=== PATIENT | male | born 1945 | race Caucasian/White ===

== ENCOUNTER 2022-09-14 08:17 | Outpatient (CLI) | payer MEDICARE, SELFPAY ==
--- NOTE | 2022-10-03 14:50 | WPDSLEEPSTUD ---
Sleep Study Date of Study: 09/14/22 Ordering Provider: Debby Lawton Interpreting Physician: Nallely Meraz DO Sleep Study Type: CPAP Titration Height: 1.75 m Weight: 97.976 kg Body Mass Index: 31.8 Neck Circumference (inches): 15.5 [place]: 7 Reason for Sleep Study Sleep study in 03/2021 showed AHI of 36.6. Prescribed autoPAP 5-20 cm H2O with EPR of 2. Recent compliance data shows residual AHI of 23 with 36% of time in Kevni Ojeda respirations Sleep History The patient is a 77-year-old male with severe sleep apnea that had a sleep study ordered by his ENT office for abnormalities on his compliance report. The patient is currently retired. He rarely awakens from sleep short of breath. He denies awakening at night with heartburn, belching or cough. He rarely snores loudly enough that others complain. He occasionally has trouble sleeping when he has a cold. He denies waking up gasping for air throughout the night. He rarely has breathing problems at night observed by himself or others. He occasionally sweats excessively at night. He occasionally has heart palpitations or irregular heartbeats during the night. He rarely falls asleep during the day and denies falling asleep while driving. He rarely experiences loss of muscle tone when extremely emotional. He denies having trouble at school or work due to sleepiness. He denies sleep paralysis and hypnagogic / hypnopompic hallucinations. He denies feeling afraid of going to sleep. He denies having nightmares. He rarely remembers his dreams. He occasionally has thoughts racing through his mind. He denies feeling sad, depressed and anxious. He rarely has muscular tension. He occasionally notices parts of his body jerk. He denies kicking during the night. He rarely has crawling and aching feelings in his legs and rarely has leg pain during the night. He denies grinding his teeth during sleep and denies awakening with morning jaw pain. He denies being bothered by pain during the day and denies being awakened by pain during the night. He denies waking up feeling stiff in the morning. He denies waking up with sore or achy muscles. He denies waking up with pain in the neck, spine or other joints. He goes to bed at 9:00 p.m. on both weekdays and weekends. It takes him 1 hour to fall asleep. He wakes up 4 times throughout the night to urinate and is able to fall back asleep within a couple minutes. He wakes up at 4:00 a.m. on both weekdays and weekends. He typically gets 6 hours of sleep per night. He will stay in bed for 1 hour after waking up in the morning. He currently lives with his . He does not consume any caffeinated beverages within 2 hours of bedtime. He does not engage in physical exercise before bedtime. He will watch television before falling asleep. He will take naps in the afternoon or the evening and they are refreshing. He drinks 2 cups of caffeinated beverage per day. He quit smoking cigarettes 15 years ago. He denies alcohol and recreational drug use. [facility] Past Medical History Medical History (Updated 10/03/22 @ 16:01 by Nallely Meraz DO) Benign prostatic hyperplasia GERD (gastroesophageal reflux disease) Hypertension Idiopathic pulmonary fibrosis AGNIESZKA (obstructive sleep apnea) Sleep Procedure This test was performed using the [employer] multiple channel system including EOG, EEG, submental EMG, EKG, nasal and oral airflow using thermistors and nasal pressure sensors, chest and abdominal belts for body position data, and pulse oximetry. Video monitoring was also performed. The study was scored using [facility] guidelines. Sleep Architecture The patient had a total recording time of 496.2 minutes and total sleep time of 149.5 minutes. The sleep efficiency was 30.1%. Sleep latency was 81.9 minutes and REM latency was 143 minutes. The patient had 78 awakenings. The patient spent 48.5 minutes, 32.4% of total sleep time in stage N1. Th
[2022-10-03 15:10] VITALS: BMI 31.8
--- NOTE | 2022-12-28 09:41 | SLEEP ---
pt is f/u with dental device
--- NOTE | 2023-01-05 11:17 | SLEEP ---
SPOKE WITH PATIENT HE EXPRESSED CONCERN ABOUT RETURNING WITH SLEEP AID AND FREQUENT URINATION. I EXPLAINED TO PT TECH WOULD BE AVAILABLE THROUGHOUT NIGHT PT AGREED TO TESTING IN ROOM 3.
== END 2022-09-15 06:34 | disposition home or self-care (01) ==
LOC: ANHCSM 08:28
DX: G47.33 Obstructive sleep apnea (adult) (pediatric) (principal); K21.9 Gastro-esophageal reflux disease without esophagitis; I10 Essential (primary) hypertension; R94.31 Abnormal electrocardiogram [ECG] [EKG]
CPT/HCPCS: 95811

== ENCOUNTER 2023-01-11 08:26 | Outpatient (CLI) | payer MEDICARE, SELFPAY ==
--- NOTE | 2023-01-29 20:50 | WPDSLEEPSTUD ---
Sleep Study Date of Study: 01/11/23 Ordering Provider: Debby Lawton Interpreting Physician: Nallely Meraz DO Sleep Study Type: CPAP Titration Height: 1.75 m Weight: 86.636 kg Body Mass Index: 28.2 Neck Circumference (inches): 15.5 [place]: 7 Reason for Sleep Study Sleep study in 03/2021 showed AHI of 36.6. Prescribed autoPAP 5-20 cm H2O with EPR of 2. Recent compliance data shows residual AHI of 23 with 36% of time in Kevin Ojeda respirations. PAP Titration on 09/14/2022 did not show an optimal pressure. The sleep architecture was extremely fragmented. Kevin Ojeda respirations were present. Sleep History The patient is a 77-year-old male with severe sleep apnea that had a sleep study ordered by his ENT office for abnormalities on his compliance report.? The patient is currently retired.? He rarely awakens from sleep short of breath.? He denies awakening at night with heartburn, belching or cough.? He rarely snores loudly enough that others complain.? He occasionally has trouble sleeping when he has a cold.? He denies waking up gasping for air throughout the night.? He rarely has breathing problems at night observed by himself or others.? He occasionally sweats excessively at night.? He occasionally has heart palpitations or irregular heartbeats during the night.? He rarely falls asleep during the day and denies falling asleep while driving.? He rarely experiences loss of muscle tone when extremely emotional.? He denies having trouble at school or work due to sleepiness.? He denies sleep paralysis and hypnagogic / hypnopompic hallucinations.? He denies feeling afraid of going to sleep.? He denies having nightmares.? He rarely remembers his dreams.? He occasionally has thoughts racing through his mind.? He denies feeling sad, depressed and anxious.? He rarely has muscular tension.? He occasionally notices parts of his body jerk.? He denies kicking during the night.? He rarely has crawling and aching feelings in his legs and rarely has leg pain during the night.? He denies grinding his teeth during sleep and denies awakening with morning jaw pain.? He denies being bothered by pain during the day and denies being awakened by pain during the night.? He denies waking up feeling stiff in the morning.? He denies waking up with sore or achy muscles.? He denies waking up with pain in the neck, spine or other joints.? He goes to bed at 9:00 p.m. on both weekdays and weekends.? It takes him 1 hour to fall asleep.? He wakes up 4 times throughout the night to urinate and is able to fall back asleep within a couple minutes.? He wakes up at 4:00 a.m. on both weekdays and weekends.? He typically gets 6 hours of sleep per night.? He will stay in bed for 1 hour after waking up in the morning.? He currently lives with his .? He does not consume any caffeinated beverages within 2 hours of bedtime.? He does not engage in physical exercise before bedtime.? He will watch television before falling asleep.? He will take naps in the afternoon or the evening and they are refreshing.? He drinks 2 cups of caffeinated beverage per day.? He quit smoking cigarettes 15 years ago.? He denies alcohol and recreational drug use. [facility] Past Medical History Medical History Benign prostatic hyperplasia GERD (gastroesophageal reflux disease) Hypertension Idiopathic pulmonary fibrosis AGNIESZKA (obstructive sleep apnea) Medications Medications: Omeprazole 40 mg Tamsulosin 0.4 mg Silodosin 8 mg Losartan 100 mg Amlodipine 10 mg Sleep Procedure This test was performed using the [employer] multiple channel system including EOG, EEG, submental EMG, EKG, nasal and oral airflow using thermistors and nasal pressure sensors, chest and abdominal belts for body position data, and pulse oximetry. Video monitoring was also performed. The study was scored using [facility] guidelines. Sleep Architecture The patient had a total recordin
[2023-01-29 20:53] VITALS: BMI 28.2
== END 2023-01-12 07:05 | disposition home or self-care (01) ==
LOC: ANHCSM 08:29
DX: G47.33 Obstructive sleep apnea (adult) (pediatric) (principal)
CPT/HCPCS: 95811